=== PATIENT | male | born 1970 | race Caucasian/White ===

== ENCOUNTER 2021-06-26 08:43 | Outpatient (REF) | payer OTHER, SELFPAY ==
--- NOTE | ~2021-06-26 | CT_ITS ---
EXAMINATION: CT ABDOMEN AND PELVIS WITH CONTRAST CLINICAL INFORMATION: Hematuria. COMPARISON: None TECHNIQUE: Multidetector volumetric images were obtained from the superior aspect of the liver through the pubic symphysis following administration 85 mL of Omnipaque 350 intravenous contrast. Sagittal and coronal reformatted images were obtained on the technologist's workstation. Oral contrast: No. This CT examination was performed using dose optimization techniques as appropriate, variously including the following: *Automated exposure control *Adjustment of mA and/or kV according to patient size (this includes techniques or standardized protocols for targeted exams where dose is matched to indication/reason for exam; i.e. extremities or head) *Use of iterative reconstruction technique DLP: 369 mGy-cm FINDINGS: LUNG BASES: The lung bases are clear. The heart size is normal. LIVER, GALLBLADDER, AND BILIARY TREE: The liver is normal in size, shape, and attenuation. No focal hepatic lesion or biliary ductal dilatation is present. The gallbladder is unremarkable with no evidence of radiopaque gallstones, gallbladder wall thickening, or obvious pericholecystic inflammatory changes. PANCREAS: Unremarkable. SPLEEN: Unremarkable. ADRENAL GLANDS: Unremarkable. KIDNEYS AND URETERS: There are symmetric bilateral renal nephrograms with normal cortical thickness. There is a 1 cm cyst lower pole right kidney. No additional cyst, solid mass or hydronephrosis is seen. No radiopaque calculi seen, however, limited due to IV contrast. There is good opacification of bilateral kidney pelvis and the ureters without any dilation. BLADDER: The bladder is partially opacified from excreted urinary contrast and appears unremarkable. There is no bladder wall thickening. GASTROINTESTINAL TRACT: There is scattered stool and gas seen throughout the colon. A few scattered diverticula in the colon are noted. There is no diverticulitis, obstruction or free air. The small bowel loops are normal caliber. The appendix is not visualized. ABDOMINAL WALL: A small umbilical hernia containing fat is noted. LYMPH NODES: Normal. VASCULAR: Unremarkable. PELVIC VISCERA: There is no free air or free fluid. OSSEOUS STRUCTURES: There is mild bilateral facet joint hypertrophy at the L4-L5 disc level. No lytic or sclerotic process seen. CT/CT abdomen pelvis w con IMPRESSION: No radiopaque renal calculi or hydronephrosis. There is a small cyst lower pole cortex right kidney. The ureters are unremarkable. The bladder is well opacified and appears unremarkable. Fleischner guidelines were followed.
== END 2021-06-26 08:44 | disposition home or self-care (01) ==
LOC: HO.CT 08:43
PROVIDERS: PCP Internal Medicine; Visit Provider Internal Medicine
DX: R31.9 Hematuria, unspecified (principal)
CPT/HCPCS: 74177